=== PATIENT | female | born 1995 | race Caucasian/White ===

== ENCOUNTER 2018-01-18 19:38 | Emergency (ER) | payer SELFPAY, OTHER ==
[2018-01-18 21:16] LABS: URINE PH (Dip) POC 5.5 (5.0-8.5)
[2018-01-18 21:16] LABS: URINE BLOOD (Dip) POC Trace-intact (NEGATIVE); URINE GLUCOSE (Dip) POC Negative (NEGATIVE); URINE KETONES (Dip) POC Negative (NEGATIVE); URINE LEUKOCYTE EST (Dip) POC 1+ (NEGATIVE); URINE NITRITE (Dip) POC Positive (NEGATIVE); URINE TOTAL PROTEIN POC Negative (NEGATIVE)
[2018-01-18] MEDS: CEFTRIAXONE 1 GM INJ IM (21:50)
== END 2018-01-18 21:57 | disposition home or self-care (01) ==
LOC: FTE 19:38
DX: N39.0 Urinary tract infection, site not specified (principal); F17.210 Nicotine dependence, cigarettes, uncomplicated; R10.2 Pelvic and perineal pain
CPT/HCPCS: 81003; 81025; 96372; 99284-25